=== PATIENT | male | born 1955 | race Caucasian/White ===

== ENCOUNTER 2016-05-13 02:59 | Inpatient (IN) | payer MEDICARE, MEDICAID ==
[~2016-05-13] VITALS: Ht 172.7 cm; Wt 108.6 kg
--- NOTE | ~2016-05-13 | CON ---
PATIENT'S NAME: SHARONDA RILEY [facility] AGE: 61 Y [address] ROOM: [id number] [place], [place] [address] LOCATION: GPCU ADMIT DATE: 05/13/2016 Consultation DISCHARGE DATE: FAMILY PHYSICIAN: Carmen Mckeon APRN ATTENDING PHYSICIAN: RENATO SIDDIQUI DATE OF CONSULTATION: 05/13/2016 REFERRING PHYSICIAN: BOBBY JOHNSON MD REASON FOR CONSULT: Infection at left arm AV graft site. HISTORY OF PRESENT ILLNESS: This is a 61-year-old male, admitted to [facility] after presenting to the [place] [facility] for evaluation of his left upper extremity surgical site. The patient reports that he was at home watching TV when he fell and 911 was called by his mother. This patient is well-known by Dr. Johnson and he most recently had a left arm brachial axillary graft placed on April 19, 2016. This patient was seen two weeks postoperatively at the [facility] and at that time, his surgical incision was found to be stable, clean, and without any signs of infection. The patient reports that over the last few days, the site has became more warm, red, swollen, and itchy. The patient reports scratching at the surgical incision. This patient is a poor historian. He answers questions during the interview, however answers are short and abrupt. He is currently in dialysis and receiving dialysis via his right upper chest tunneled dialysis catheter. The patient had a temperature high of 100.4 in the [place] ER. He also reports bloody drainage from the site. The patient currently denies any shortness of breath, chest pain, nausea, vomiting, diarrhea, constipation, abdominal pain, dizziness, or lightheadedness. He denies any chills. Symptoms are positive for increased swelling, redness, drainage, and pain at the left arm. The patient with a history of abscess to left arm, postop fistula back in September. PAST MEDICAL HISTORY: 1. End-stage renal disease. He is currently on hemodialysis every Monday, Monday, and Monday. 2. Diabetes mellitus type 2. Noncompliant. 3. Left upper extremity AV fistula postsurgical infection back in September 2015. 4. Hypertension. 5. Depression. 6. Coronary artery disease, bare-metal stent in May 2014 to the right RCA. 7. History of chronic diastolic heart failure. Most recent echo in March 2015, EF of 55% to 60%. Mild diastolic dysfunction, moderate pulmonary hypertension, pulmonary arterial systolic pressure estimated to be 51 PATIENT'S NAME: SHARONDA RILEY [facility] AGE: 61 Y [address] ROOM: [id number] [place], [place] [address] LOCATION: GPCU ADMIT DATE: 05/13/2016 Consultation DISCHARGE DATE: FAMILY PHYSICIAN: Carmen Mckeon APRN ATTENDING PHYSICIAN: RENATO SIDDIQUI. SURGICAL HISTORY: Left arm brachial axillary AV graft on April 19, 2016; left arm brachiocephalic revision in December 29, 2015; left arm brachiocephalic fistula creation on September 03, 2015; drainage left arm abscess in September 2015; status post left 3rd and fourth toe amputations from diabetic foot ulcer; cardiac catheterization with bare-metal stent to right RCA. FAMILY HISTORY: Mother with heart failure. Father with Alzheimer disease. CURRENT MEDICATIONS: See medication records. ALLERGIES: NO KNOWN ALLERGIES. REVIEW OF SYSTEMS: A 10-point review of systems was completed, positives addressed in the history of presenting illness. PHYSICAL EXAMINATION: VITAL SIGNS: Temperature 98.7, heart rate 55, respiratory rate 20, blood pressure 148/100, oxygen saturation 100%. GENERAL: The patient is a poor historian, poor hygiene, irritable at the time of interview, he appears in no distress. Left arm is tender on palpation. Pain overall controlled. SKIN: Multiple abrasions to the hands, overall pink, erythema to left arm. HEENT: Head: Normocephalic and atraumatic. Ears without drainage. Eyes: Sclerae white. Conjunctivae pink. Extraocular movements intact. PERRLA. Nose: Without drainage. Throat and Oral: Mucosa pink and moist. Poor dentition. NECK: Without adenopathy. No evidence of JVD. Trachea midline. RESPIRATORY: Clear to auscultation bilaterally, even and nonlabored. He is tachypneic at times. CARDIOVASCULAR: Regular rate and rhythm. No murmur or extra sounds. GASTROINTESTINAL: Bowel sounds active x4. Soft, obese, nontender. EXTREMITIES: Left upper extremity AV graft site is erythemic and edematous. Incision is open with purulent drainage. Warm to touch. It is positive for bruit and thrill. Radial and dorsalis pedis 2+ bilaterally. No cyanosis. Active range of motion throughout. NEUROLOGICAL: No focal deficits. Equal strength bilaterally. LABS: PATIENT'S NAME: SHARONDA RILEY [facility] AGE: 61 Y [address] ROOM: [id number] [place], [place] [address] LOCATION: GPCU ADMIT DATE: 05/13/2016 Consultation DISCHARGE DATE: FAMILY PHYSICIAN: Carmen Mckeon APRN ATTENDING PHYSICIAN: RENATO SIDDIQUI Hematology: White blood cell count 24.1, hemoglobin 9.5, hematocrit 28.6, platelets 180. CRP 17.9, procalcitonin 6.36. Blood cultures have been obtained and results are pending. IMPRESSION: 1. End-stage renal disease, on hemodialysis. 2. Sepsis as a result of infected AV graft. 3. Diabetes mellitus type 2. 4. Hypertension. 5. Coronary artery disease. 6. History of chronic diastolic heart failure. PLAN: The patient is with infected AV graft which will lead to severe sepsis, if not removed. It is difficult to clear infection from grafts once they have been exposed. The patient with increased white blood cell count, increased inflammatory markers, as well as visible signs of infection on examination. The patient was started on Zosyn and vanco per hospitalist team. We will plan for removal of AV graft with Dr. Johnson today and keep the patient n.p.o. Dr. Johnson has examined the patient and discussed risks and benefits with the patient. The patient verbalizes understanding of this plan. The patient will continue dialysis via his tunneled catheter. With removal of this graft, the patient will be without AV graft or fistula access. He will likely need to be refered to [facility] for hero graft placement,however he will need to be free of infection before a new graft is placed. Thank you for your consultation and for allowing us to participate in the care of this patient. KATE CRISTOBAL APRN FOR BOBBY JOHNSON MD TO/yonasl /[id number] d: 05/13/16 1342 t: 05/21/16 1042, CONSULTATION REPORT
--- NOTE | ~2016-05-13 | CON ---
PATIENT'S NAME: SHARONDA RILEY [facility] AGE: 61 Y [address] ROOM: [id number] [place], [place] [address] LOCATION: GPCU ADMIT DATE: 05/13/2016 Consultation DISCHARGE DATE: FAMILY PHYSICIAN: Camren Mckeon APRN ATTENDING PHYSICIAN: RENATO SIDDIQUI DATE OF CONSULTATION: 05/18/2016 REFERRING PHYSICIAN: BOBBY DE LA ROSA MD REASON FOR EVALUATION: MRSA bacteremia. CHIEF COMPLAINT: The patient states that he is doing okay. HISTORY OF PRESENT ILLNESS: Mr. Riley is not the best of historians. He is a 61-year-old man with end- stage renal disease, on dialysis. He apparently had a new graft placed into his left arm on April 19. Per notes, had a 2-week check, it was looking okay. I am uncertain if this was actually ever use for dialysis or not. In any event, he had some increased itchiness to the area and had some scratching of the area. The area then started to worsen. He kind of went unresponsive at home and was bleeding out of the left arm. He went to outside facility emergency room and pus was seen coming out of the left arm. He had a low- grade temperature. Blood cultures were obtained and he was started on empiric antibiotics and moved here. His AV graft was removed on that day (05/13). Blood cultures were obtained on arrival here at [facility]. His graft culture grew MRSA. There was report of necrotic tissue. He currently has a wound VAC in place. His blood cultures on arrival here were negative, but his blood cultures at outside facility were positive. He received some broad- spectrum antibiotics and then was transitioned to doxycycline a couple of days ago. With knowledge that his outside facility blood cultures return positive, he was restarted on vancomycin today. I am asked to evaluate. He is currently doing okay. He denies having any fevers or feeling sick. He states that his arm is doing better. He denies any back pain or other joint complaints. PAST MEDICAL HISTORY: Significant for end-stage renal disease, on dialysis via PermCath; diabetes mellitus; history of an MRSA postop fistula infection in 2016; high blood pressure; and coronary artery disease. SOCIAL HISTORY: He is retired. Lives with his mother. Negative for tobacco, alcohol, or drug use. PATIENT'S NAME: SHARONDA RILEY [facility] AGE: 61 Y [address] ROOM: [id number] [place], [place] [address] LOCATION: GPCU ADMIT DATE: 05/13/2016 Consultation DISCHARGE DATE: FAMILY PHYSICIAN: Carmen Mckeon APRN ATTENDING PHYSICIAN: RENATO SIDDIQUI FAMILY HISTORY: Positive for heart failure and Alzheimer's. REVIEW OF SYSTEMS: Pertinent positives include; 1. Integumentary. The patient with previous left arm issues, now with a wound VAC. 2. Genitourinary. The patient has end-stage renal disease, on dialysis. As the patient denies any and all other symptoms, the remainder of the complete review of systems is otherwise negative. PHYSICAL EXAMINATION: GENERAL: The patient lying in bed, in no acute distress. HEENT: The patient is anicteric. No conjunctival lesions noted. Ears, Nose, and Throat: Tongue has no thrush. CARDIOVASCULAR: Heart has regular rate and rhythm. RESPIRATORY: Breathing is easy and unlabored. Lungs are clear anterolaterally. GASTROINTESTINAL: Abdomen is soft and nontender. Normoactive bowel sounds are present. LYMPHATIC: No cervical lymphadenopathy. MUSCULOSKELETAL: No effusions of fingers, wrists, elbows, shoulders, or knees. INTEGUMENTARY: There is a wound VAC in place on the left arm. His IV site looks okay. His PermCath site looks okay. LABORATORY STUDIES: Blood cultures 2/2 at outside facility on the are positive for MRSA. His blood cultures here 4 hours later are negative. His AV graft tissue culture was MRSA. ASSESSMENT AND RECOMMENDATIONS: Methicillin-resistant Staphylococcus aureus bacteremia/graft infection. I think the chance of having endocarditis or something is extremely low as he cleared his blood cultures in only 4 hours. I suspect he did have a soft- tissue/graft infection with a secondary bacteremia. I am not certain exactly how long he was bacteremic, however. Symptoms of the arm were slowly increasing over time. The source of the infection has been removed. Given that there was some graft involvement and did have positive blood cultures, I would treat him with 4 weeks of parenteral antibiotics. This would give a planned stop date of June 10. This vancomycin is appropriate here and hopefully could be dosed with dialysis. I am uncertain if the graft had actually been used for dialysis yet, but as it was a graft site infection PATIENT'S NAME: SHARONDA RILEY [facility] AGE: 61 Y [address] ROOM: [id number] [place] [id number] [facility] ADMIT DATE: 05/13/2016 Consultation DISCHARGE DATE: FAMILY PHYSICIAN: Carmen Mckeon APRN ATTENDING PHYSICIAN: RENATO SIDDIQUI perhaps this means that the antibiotics could be given with his dialysis sessions? This will be at the discretion of Nephrology. I would, however, keep him on the vancomycin until June 10. Thank you for allowing me to participate in the care of Mr. Riley. MD STACY ALVARADO/modl /[id number] d: 05/19/16 0121 t: 05/19/16 1002, CONSULTATION REPORT
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
--- NOTE | ~2016-05-13 | HP ---
PATIENT'S NAME: SHARONDA RILEY [facility] AGE: 61 Y [address] ROOM: [id number] [place], [place] [address] LOCATION: GPCU ADMIT DATE: 05/13/2016 History & Physical DISCHARGE DATE: FAMILY PHYSICIAN: PHYSICIAN, UNKNOWN ATTENDING PHYSICIAN: RENATO SIDDIQUI DATE OF SERVICE: CHIEF COMPLAINT: Left arm pain. HISTORY OF PRESENT ILLNESS: This is a 61-year-old male who is a poor historian who says that he started feeling this itchiness in the left arm for a week ago; so, he started scratching and he for the last few days he noticed that the left arm starting to become erythematous, inflamed, and painful to touch. Today, he was at home watching TV, sitting on the chair, and he has no idea what happened and he fell down from the chair onto the ground and his mother who lives with him at home found him on the ground and 911 was called. EMS arrived at the scene and according to the report given to me by the provider from [facility] he told me that the patient was found to be covered with blood coming out from the left arm, where he has been scratching, and EMS put a dressing to cover it. The patient was brought to [facility] for evaluation. The patient is a poor historian and he cannot really tell me what happened and how did he fall and if he passed out or not. The patient cannot give me any details, but he did tell me that he never complained of chest pain or lightheadedness and there was no seizure activity. There was no postictal confusion. There was no urinary or bowel incontinence. There was no shaking of the limbs and there was no chest pain, palpitation, or dyspnea prior to the fall. The patient denies any head trauma. Over there at the [facility], the patient's dressing was removed, and according to the provider over there, they told me that there was active purulent drainage coming out from the left arm with serosanguineous drainage and the patient was later transferred here for higher level of care. Over there at the [facility], the patient's blood work and vital signs were remarkable for temperature at 100.4, low-grade fever, hemodynamically stable, blood pressure 120/60, on arrival and also at the time of transfer. MAP was always more than 65. Hemoglobin over there was 9.8, potassium was 5.4, leukocytosis, white blood cell 19,000, platelet 192,000, and saturating at 95% on 2 L nasal cannula. The patient was given 1 dose of IV vancomycin, 1 dose of IV Zosyn, and also got 1 L of normal saline bolus and was later transferred here for higher level of care. REVIEW OF SYSTEMS: As mentioned in the history of present illness. All other system review negative except those mentioned in history of present illness. PATIENT'S NAME: SHARONDA RILEY [facility] AGE: 61 Y [address] ROOM: [place] [address] LOCATION: GPCU ADMIT DATE: 05/13/2016 History & Physical DISCHARGE DATE: FAMILY PHYSICIAN: PHYSICIAN, UNKNOWN ATTENDING PHYSICIAN: RENATO SIDDIQUI PAST MEDICAL HISTORY: 1. End-stage renal disease, on hemodialysis every Monday, Monday, and Monday, he has a tunnel cath. 2. Diabetes, type 2, noncompliant, on home medication. 3. History of infected left upper extremity AV fistula, status post incision and drainage back in September 2015. 4. Hypertension. 5. Depression. 6. History of coronary artery disease, status post bare metal stent in May 2014 to the right RCA. 7. History of chronic diastolic heart failure with most recent transthoracic echo in March 2015, EF of 55% to 60%, with mild diastolic dysfunction, and moderate pulmonary hypertension of pulmonary arterial systolic pressure estimated to be at 51 mmHg. 8. On April 19, 2016, the patient underwent left arm brachioaxillary AV graft performed by Dr. Johnson. The patient had a most recent cardiac catheterization was on June 05, 2014. The patient had a RCA of 99% stenosis that is when he had a bare metal stent placed to the RCA. SOCIAL HISTORY: The patient denies any alcohol, illegal drug, or cigarette use in the past. The patient lives at home with his mother. 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 PAST SURGICAL HISTORY: 1. Status post right RCA bare metal stent placed in May 2014. 2. 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 3. Status post left AV fistula abscess, status post incision and drainage in 2015 in September. 4. On April 19, 2016, the patient underwent left arm brachioaxillary AV graft by Dr. Johnson. FAMILY HISTORY: Mother had heart failure. Father had Alzheimer disease. Father from advanced age from a cause that the patient could not remember. His mother is still alive and lives with him at home. ALLERGIES: NO KNOWN DRUG ALLERGIES. HOME MEDICATIONS: The medication list will be reconciled in the morning with the patient's pharmacy. PHYSICAL EXAMINATION: PATIENT'S NAME: SHARONDA RILEY [facility] AGE: 61 Y [address] ROOM: [id number] [place], [place] [address] [facility] ADMIT DATE: 05/13/2016 History & Physical DISCHARGE DATE: FAMILY PHYSICIAN: PHYSICIAN, UNKNOWN ATTENDING PHYSICIAN: RENATO SIDDIQUI VITAL SIGNS: At the time of my dictation, temperature 98.5, heart rate 89, respiration 12, blood pressure 142/67, MAP is 85, and saturation 97% on 2 L nasal cannula. GENERAL APPEARANCE: Alert and oriented x3, in no acute distress. HEENT: Pupils equally round and reactive to light. Extraocular muscles intact. Nasal turbinates are normal bilaterally. Moist oral mucosa. No oral thrush. NECK: No JVD. No cervical lymphadenopathy. No neck stiffness. CARDIOVASCULAR: Regular rate and rhythm. Normal S1, S2. No murmur, no rubs, no gallops. RESPIRATORY: Clear. ABDOMEN: Obese, soft, nontender, nondistended, normal bowel sounds. No hepatosplenomegaly. EXTREMITIES: No edema in lower extremities bilaterally. No edema in the right upper extremity. In the left arm, the patient has erythema, edema, and tenderness to palpation and has an open cut with serosanguineous drainage. It is painful to palpation. No obvious purulent drainage on my examination, but I could not really squeeze the arms either due to the pain. The patient is status post left 3rd and 4th toe amputation with some eschar in that area. The patient states it is chronic and has not changed. Right lower extremity: The patient has necrotic looking toenail on the 1st toe and also necrotic- looking toenail on the 4th toenail. The patient said this has been happening for the last 1-2 months. Dorsalis pedis pulses palpable, but weak bilaterally. Posterior tibialis pulse is also palpable bilaterally, but also weak. SKIN: As mentioned in the extremity section. NEUROLOGIC: Grossly nonfocal. The patient denies any decreased sensation in the bilateral lower extremities. MUSCULOSKELETAL: No joint pain. No muscle pain except in the left arm area. Refer to the extremity section for details. LABORATORY DATA: Lactic acid 1.7. White blood cell 24.1, hemoglobin 9.5, hematocrit 28.6, MCV 106.3, and platelet 180. Glucose 283, BUN 67, creatinine 9.0, sodium 132, potassium 5.4, chloride 93, CO2 21, calcium 8.2, total protein 7.5, albumin 3.1, AST 16, ALT 14, alkaline phosphatase 77, total bilirubin 0.5, direct bilirubin 0.2, phosphorus 6.5, magnesium 2.3, anion gap 23.4, GFR 6, hemoglobin A1c 7.6, INR 1.1, PTT 32. Procalcitonin 6.36. MICROBIOLOGY STUDIES: Blood culture 2 sets already obtained and pending. IMAGING STUDIES: No imaging was performed from the outside facility. PATIENT'S NAME: SHARONDA RILEY [facility] AGE: 61 Y [address] ROOM: [address] [address] [facility] ADMIT DATE: 05/13/2016 History & Physical DISCHARGE DATE: FAMILY PHYSICIAN: PHYSICIAN, UNKNOWN ATTENDING PHYSICIAN: RENATO SIDDIQUI ASSESSMENT AND PLAN: 1. Severe sepsis, secondary to left arm abscess and possible infected left arm arteriovenous graft: I will cover the patient with intravenous vancomycin and intravenous Zosyn. The patient is already on dialysis therefore intravenous vancomycin is okay to use. Will likely require US of the AV graft for possible infected AV graft. Currently, the patient is hemodynamically stable and the patient is on dialysis. The patient already got 1 L normal saline bolus from the outside facility even though the patient was never hypotensive. For now, the patient is hemodynamically stable. For now, I will watch him closely. Follow up blood culture 2 sets. I will consult Vascular Surgery in the morning to look into possible infected left arteriovenous graft. Further imaging test will be deferred to Vascular Surgery as determined necessary. If the patient becomes hemodynamically unstable or start dropping blood pressure, we will give intravenous fluids bolus as necessary. In the setting of dialysis patient and hemodynamically stable, aggressive intravenous fluids right now is not necessary. I will also obtain study of the drainage from the left arm. Check labs in the morning again. I will use the sepsis order set. Another differential could be cellulitis of the left arm. Osteomyelitis could be another differential, but in that case, MRI will be a better imaging. Could obtain MRI without contrast to prevent systemic nephrogenic fibrosis in the setting of end- stage renal disease. I will check a CRP and ESR. If osteomyelitis is suspected, then a biopsy ideally should be obtained prior to antibiotics. Currently, the wound does not look deep enough to affect the bone and it looks more like abscess or cellulitis. Further plan depends on clinical course. 2. Regarding his end-stage renal disease, on dialysis: Consult Nephrology for hemodialysis on every Monday, Monday, and Monday. 3. Regarding his diabetes, type 2: Put him on a sliding scale aspart a.c. and h.s. mild dose and titrate as necessary. Check A1c. Currently, the patient's medication list will be reconciled in the morning. It will be addressed once the medication list is ready. While he is n.p.o., he will be getting subcutaneous regular insulin, mild dose, q.6 h. While he is eating, he will get subcutaneous aspart insulin a.c. and h.s. mild dose. 4. Hypertension: Currently, home medication is being reconciled. In the setting of severe sepsis, I will hold the blood pressure medication for now. The patient is hemodynamically stable right now. 5. History of coronary artery disease with bare metal stent placed in the right coronary artery in May 2014: The patient denies any chest pain. I will get an EKG in the morning to confirm sinus rhythm. 6. History of chronic diastolic heart failure: Echo in March 2015 showed ejection fraction of 55% to 60% with mild diastolic dysfunction and moderate pulmonary hypertension of 51 mmHg of pulmonary arterial systolic pressure. Currently, the patient denies any shortness of breath, lungs PATIENT'S NAME: SHARONDA RILEY [facility] AGE: 61 Y [address] ROOM: [id number] [place], [place] [address] LOCATION: GPCU ADMIT DATE: 05/13/2016 History & Physical DISCHARGE DATE: FAMILY PHYSICIAN: PHYSICIAN, UNKNOWN ATTENDING PHYSICIAN: RENATO SIDDIQUI are clear. Requiring 2 L oxygen nasal cannula satting at 97%. I will get a chest x-ray to look for fluid overload in the setting of dialysis patient. Further plan depends on clinical course and depends on Vascular Surgery evaluation and Nephrology. The patient may require incision and drainage of the left arm. The patient has end-stage renal disease and his troponin will always be high due to the setting of end-stage renal disease. If the patient has chest pain, then troponin, CPK, CK-MB will be checked. For now, I will just get EKG in the morning to confirm sinus rhythm. The patient denies any chest pain. 7. Deep vein thrombosis prophylaxis: The patient will be on heparin subcutaneous 3 times a day. 8. History of left 3rd and 4th toe amputation, secondary to diabetic foot ulcer in the past: The patient complains of new-onset necrotic looking toenail on the 1st and 4th right toe. I will consult Wound Care to take a look at his wound. Dorsalis pedis pulses and posterior tibialis pulses are palpable, but weak in bilateral feet. 9. Further plan depends on clinical course. Time spent on the day of admission 45 minutes including chart review, interviewing and examining the patient, addressing all the questions and concerns that the patient had, and going over the plan of care with the patient and the nurse. MD LIU SOLO/brett /[id number] D: [id number] T: [id number] HISTORY & PHYSICAL
--- NOTE | ~2016-05-13 | DS ---
PATIENT'S NAME: SHARONDA RILEY [facility] AGE: 61 Y [address] ROOM: [address] [place], [place] [address] LOCATION: GPCU ADMIT DATE: 05/13/2016 Discharge Summary DISCHARGE DATE: FAMILY PHYSICIAN: Carmen Mckeon APRN ATTENDING PHYSICIAN: Demetri Cuellar PRINCIPAL DIAGNOSES: 1. Severe sepsis secondary to MRSA. 2. Arteriovenous graft MRSA infection, status post explant. 3. Type 2 diabetes. 4. Morbid obesity. 5. End-stage renal disease. 6. Asymptomatic bradycardia. PROCEDURES: Procedures done in the hospital; removal of left arm AV graft on 05/13/2016, by Vascular Surgery; tunnelled catheter placement by Interventional Radiology for dialysis. CONSULTANTS: Vascular Surgery, Nephrology, and Infectious Disease. HOSPITAL COURSE: A 61-year-old gentleman who is a poor historian, was admitted from [facility], where he was evaluated when he became drowsy and fell from the chair while watching TV. It appears that he had been having fever and itching on the left arm where AV graft was placed recently in March. He was transferred here for further medical care. On physical examination, the left AV graft looked infected. Vascular Surgery was consulted who explanted the graft on 05/13/2016. Blood cultures from outside facility as well as graft grew MRSA. Repeat cultures showed clearance of the bacteremia. He was started on vancomycin until 06/10/2016 per Infectious Disease's recommendation. He continued to get his scheduled dialysis in the hospital with the help of Nephrology. He also had asymptomatic bradycardia, and his metoprolol is being stopped on discharge. DISCHARGE MEDICATIONS: 1. Amlodipine 2.5 mg p.o. every day. 2. Aspirin 81 mg daily. 3. PhosLo 667 mg, dose 2668 mg, p.o. 3 times daily with meals. 4. Chlorhexidine gluconate use topically 3 times daily. 5. Cinacalcet 30 mg p.o. every day with food. 6. Docusate 100 mg p.o. twice daily. 7. Escitalopram 40 mg p.o. every day. 8. Insulin glargine 30 units subcu every morning, insulin glargine 15 units subcu every night at bedtime. 9. Pioglitazone 30 mg p.o. every day. 10. Simvastatin 40 mg p.o. every night at bedtime. PATIENT'S NAME: SHARONDA RILEY [facility] AGE: 61 Y [address] ROOM: [address] [place], [place] [address] LOCATION: GPCU ADMIT DATE: 05/13/2016 Discharge Summary DISCHARGE DATE: FAMILY PHYSICIAN: Carmen Mckeon APRN ATTENDING PHYSICIAN: Demetri Cuellar 11. Erythropoietin with dialysis, as per directed. 12. Tylenol 325 mg take 2 tablets as needed for pain. 13. Rutledge 5/325 one tablet p.o. every 4 hours p.r.n. for pain. 14. Dulcolax suppository 10 mg every day p.r.n. 15. Benadryl 25 mg p.o. at bedtime as needed. 16. Vancomycin IV, Pharmacy to dose, with dialysis until 06/10/2016. DISCHARGE DISPOSITION/INSTRUCTIONS: The patient will be sent home with home health care, with dialysis he will get IV vancomycin after the session. He will follow up with Dr. Johnson in 2 weeks and the primary care physician, Carmen Mckeon, in 3 days with a CBC and a BMP. DISCHARGE ACTIVITY: As tolerated. DIET: Renal diet. I spent 40 minutes in discharge planning and discharge coordination of this patient. MD JELLY BARAHONA/brett /[id number] d: 05/19/16 1327 t: 05/19/16 1821, DISCHARGE SUMMARY
--- NOTE | ~2016-05-13 | ECHO ---
Transthoracic Echocardiography Report (TTE) Demographics Patient Name SHARONDA RILEY Date of Study 05/19/2016 Patient Number [id number] Visit Number [id number] Date of 1955 Room Number G6335 Accession Number [id number] Gender Male Age 61 year(s) Referring Mike Hale Vocal Artist Hung Nicolas Physician Alisa Estrada MD Physician Interpreting Ashlee Franklin Mine Car Dispatcher Physician Chris PIERRE Supervising Ordering Physician Abhishek Magallanes MD/VIVI PIERRE Nurse Stress Diesel Stationary Engineer Conclusions Contractility Score Summary Normal Left Ventricular contractility was noted. Summary Technically difficult exam due to patient position and noncompliance. The left ventricle is normal in size . Mild concentric left ventricular hypertrophy. Diastolic assessment reveals Grade I diastolic dysfunction. Estimated EF: 65 %. The aortic root appears borderline dilated. The maximum diameter measures 3. cm. The ascending aorta appears mildly dilated. The maximum diameter measures 3.7 cm. No significant valvular pathology. Procedure Type of Study TTE procedure:2D Echocardiogram, M-Mode, Doppler , Color Doppler. Procedure Date Date: 05/19/2016 Start: 09:03 AM Study Location: Inpatient Portable Technical Quality: Fair due to body habitus. Indications:Endocarditis. Additional Indications:MRSA bacteremia Appropriate Use Criteria: 9 Patient Status: Routine HR: 40 bpm BP: 137/63 mmHg Allergies - No known allergies. M-Mode/2D Measurements LV Diastolic Dimension: 4.95 cm LV Systolic Dimension: 2.68 cm LV Septum Diastolic: 1.28 cm LV PW Diastolic: 1.17 cm AO Root Dimension: 3.2 cm Cardiac Output: 4.31 l/min LA Dimension: 3 cm LVOT: 2.1 cm LVOT VTI: 31.1 cm RV Base: 3.41 cm LV Stroke volume: 107.66 ml RV Length: 8.9 cm TAPSE: 3.15 cm TDI-S': 24.2 cm/s Doppler Measurements AV Peak Velocity: 1.84 m/s MV Peak E-Wave: 0.68 m/s AV Peak Gradient: 13.54 mmHg MV Peak A-Wave: 0.9 m/s AV Mean Gradient: 7 mmHg MV E/A Ratio: 0.75 LVOT Peak Velocity: 1.63 m/s MV P1/2t: 62 msec TR Gradient:9.24 mmHg PV Peak Velocity: 1.55 m/s Estimated RAP:3 mmHg PV Peak Gradient: 9.61 mmHg Estimated RVSP: 12 mmHg Estimated PASP: 12.24 mmHg E' Septal Velocity: 0.07 m/s A' Septal Velocity: 0.12 m/s E' Lateral Velocity: 0.09 m/s A' Lateral Velocity: 0.12 m/s Findings Left Ventricle The left ventricle is normal in size . Mild concentric left ventricular hypertrophy. Diastolic assessment reveals Grade I diastolic dysfunction. Estimated EF: 65 %. Right Ventricle Normal right ventricle structure and function. Left Atrium The left atrium is mildly dilated by LA volume index measurement. Right Atrium Normal right atrial size. IVC measures 1.89 cm with inspiratory collapse. Mitral Valve Mild mitral annular calcification. Borderline prolapse of the mitral valve. No significant mitral regurgitation. Aortic Valve Normal aortic valve structure and function. Tricuspid Valve Trivial tricuspid regurgitation by color Doppler. Pulmonic Valve Normal pulmonic valve structure and function. Pericardial Effusion No evidence of pericardial effusion. Epicardial fat pad noted. Miscellaneous The aortic root appears borderline dilated. The maximum diameter measures 3. cm. The ascending aorta appears mildly dilated. The maximum diameter measures 3.7 cm. Pleural Effusion No evidence of pleural effusion. Contractility Score LV regional wall motion:(0-Non visualized 1-Normal 2-Hypokinesis 3-Akinesis 4-Dyskinesis 5-Aneurysm) Signature dtt: Luisa Rosado dtd: 05/19/16 0903 Physician Self Edit
--- NOTE | ~2016-05-13 | OR ---
PATIENT'S NAME: SHARONDA RILEY [facility] AGE: 61 Y [address] [place] [facility] [place], [place] [address] LOCATION: GPCU ADMIT DATE: 05/13/2016 OR/Procedure Report DISCHARGE DATE: FAMILY PHYSICIAN: Carmen Mckeon APRN ATTENDING PHYSICIAN: RENATO SIDDIQUI SURGEON: Tono Johnson MD HOME HEALTH CARE PROVIDER: DATE OF PROCEDURE: 05/13/2016 PREOPERATIVE DIAGNOSIS: Infected left arm arteriovenous graft. POSTOPERATIVE DIAGNOSIS: Infected left arm arteriovenous graft. PROCEDURE PERFORMED: Removal of left arm arteriovenous graft. ANESTHESIA: General. ESTIMATED FLUID LOSS: 300 mL. OPERATIVE FINDINGS: Necrotic tissue in both the arterial and venous sites. Vein and artery closed primarily with 6-0 Prolene. DESCRIPTION OF PROCEDURE: The patient was brought to operating room, placed supine on the operating room table, and prepped and draped in a sterile manner. Preoperative time-out was performed. The patient was prepped and draped in a sterile manner. The patient received preoperative antibiotics in the form of Zosyn. We made an incision on the arterial side from his previous graft anastomosis. We dissected down. The wound was heavily scarred in. There was necrotic tissue surrounding the graft. It was difficult to ascertain what specific structures were. We were able to get down to the suture line. Even then it was difficult to dissect away normal-appearing artery from the surrounding scar tissue. We gave 5000 units of heparin and we had the clamping proximally and distally on what appeared to be the artery, however, after removing the graft, we could not achieve hemostasis. So we adequately put a tourniquet on further attempts and even with the tourniquet further attempts to patch the hole in the artery were unsuccessful. I had to simply do a primary anastomosis with a 6-0 Prolene. We removed the tourniquet and the clamps, and there was a radial pulse that was felt. We then turned our attention to opening up the venous end. Similar findings there with extremely scarred in tissue which was very hemorrhagic and required lots of Bovie cautery for hemostasis. We then dissected down the graft and once again, also find the suture line. We were not able to ascertain any normal- appearing vein. We also clamped proximally and distally on the tissue that appeared to be where the anastomosis was and then removed the graft and then we stitch the vein closed with the 6-0 Prolene as well. We copiously PATIENT'S NAME: SHARONDA RILEY [facility] AGE: 61 Y [address] ROOM: [id number] [place] [id number] [facility] ADMIT DATE: 05/13/2016 OR/Procedure Report DISCHARGE DATE: FAMILY PHYSICIAN: Carmen Mckeon APRN ATTENDING PHYSICIAN: RENATO SIDDIQUI irrigated both wounds with antibiotic solution, packed it with Dakin-soaked solution, and wrapped it with Kerlix, Luis wraps, and ABD pads. The patient tolerated the procedure well and transferred to the recovery room, then back to the floor. MD KIRAN العلي/brett /[id number] d: 05/13/16 2334 t: 05/17/16 1711, OPERATIVE SUMMARY
--- NOTE | ~2016-05-13 | CON ---
[facility]GE[facility] 61 Y [address] ROOM: [place] [address] LOCATION: GPCU ADMIT DATE: 05/13/2016 Consultation DISCHARGE DATE: FAMILY PHYSICIAN: Carmen Mckeon APRN ATTENDING PHYSICIAN: RENATO SIDDIQIU DATE OF CONSULTATION: 05/16/2016 REFERRING PHYSICIAN: BOBBY DE LA ROSA MD REASON FOR CARDIOLOGY CONSULTATION: Bradycardia. HISTORY OF PRESENT ILLNESS: This is a 61-year-old male, admitted with a left arm abscess and infected AV graft. He is currently status post removal of that graft due to infection. This consult requested due to the patient experiencing asymptomatic bradycardia in the setting of deep sleep as well as hyperkalemia. He had no hemodynamic changes noted other than the bradycardia. His blood pressure remained stable and the patient was unaware of any symptomatology during the event. He has a previous history of coronary artery disease with a stent placed to his RCA in [address] Salazar. He has refused followup with Cardiology since that time. At this point, he has no current complaints or any recent history of chest pain, shortness of breath, dyspnea on exertion, presyncope, syncope, nausea, vomiting, or diarrhea. He states he has no health complaints at this time other than his infected arm, which started with a scratch. PAST MEDICAL HISTORY: 1. Coronary artery disease status post a bare metal stent placement to the RCA in 2014. 2. Hypertension. 3. Diabetes mellitus type 2 with noncompliance. 4. Chronic diastolic congestive heart failure. 5. End-stage renal disease, on hemodialysis. 6. Depression. FAMILY HISTORY: The patient's mother had a history of heart failure. His father did have Alzheimer disease, but due to advanced age. SOCIAL HISTORY: The patient denies alcohol or illicit drug use. He also denies ever using tobacco. CURRENT MEDICATIONS: PATIENT'S NAME: OSVALDO [facility] AGE: 61 Y [address] ROOM: [place] [address] LOCATION: GPCU ADMIT DATE: 05/13/2016 Consultation DISCHARGE DATE: FAMILY PHYSICIAN: Carmen Mckeon APRN ATTENDING PHYSICIAN: RENATO SIDDIQUI 1. Actos 30 mg p.o. daily. 2. Aspirin 81 mg p.o. daily. 3. Colace 100 mg p.o. twice daily. 4. Doxycycline 100 mg p.o. twice daily. 5. Lexapro 40 mg p.o. daily. 6. PhosLo 2668 mg p.o. 3 times daily. 7. Sensipar 30 mg p.o. daily. 8. Zocor 40 mg p.o. daily in the evening. 9. Heparin 5000 units subcutaneous 3 times daily. 10. Levemir 15 units subcu daily in the evening. 11. NovoLog subcu on a mild sliding scale per a.c. and h.s. Accu-Cheks. 12. Peridex 3 times daily. MEDICATION ALLERGIES: No known medication allergies. REVIEW OF SYSTEMS: Pertinent positive review of systems listed in the HPI. All other review of systems evaluated and negative. PHYSICAL EXAMINATION: VITAL SIGNS: Temperature 97.5, pulse 53, respirations 16, blood pressure 115/54, and O2 saturation 95% on room air. The patient weighs 107.3 kg. SKIN: [place], warm, and dry. EYES: Sclerae clear. No xanthelasmas. ENT: Oral mucosa is pink and moist. No jugular venous distention. No carotid bruits. CHEST: Respirations are even and unlabored. Lung sounds are diminished to bilateral bases. HEART: Regular rate and rhythm. Normal S1 and S2. No murmurs, rubs, or gallops. ABDOMEN: Soft and nontender. It is obese and distended and possible ascites noted. MUSCULOSKELETAL: Equal muscle strength to upper and lower extremities bilaterally against resistance. EXTREMITIES: Peripheral pulses palpable. No clubbing or cyanosis noted. Does have mild lower extremity edema present. PSYCH: Alert and oriented. Mood and affect are appropriate. IMPRESSION AND PLAN: Per Dr. Bradley. 1. Asymptomatic bradycardia. 2. Coronary artery disease with history of stenting to the right coronary artery. 3. Hyperkalemia. PATIENT'S NAME: SHARONDA RILEY [facility] AGE: 61 Y [address] ROOM: [id number] [place], [place] [address] LOCATION: [facility] ADMIT DATE: 05/13/2016 Consultation DISCHARGE DATE: FAMILY PHYSICIAN: Carmen Mckeon APRN ATTENDING PHYSICIAN: RENATO SIDDIQUI 4. End-stage renal disease, on hemodialysis. 5. Anemia. The patient's bradycardia noted during his deep sleep as well as his hyperkalemia. He currently has appropriate heart rate response with exercise. He has no signs or symptoms of acute coronary syndrome and no acute ST changes noted on his EKG. There is no syncope and no need for further invasive cardiac evaluation. He has no complaints of angina. We do recommend continuing his aspirin, but do agree with stopping his beta-johanne in the setting of bradycardia. His hyperkalemia and end-stage renal disease are managed by Nephrology. Last echocardiogram showed an ejection fraction of 55% to 60% with moderate pulmonary hypertension. We will continue to monitor, evaluate, and treat as appropriate. Thank for this consult. Thank for allowing [facility] to interact in the care of this patient. CHARLIE ARGUETA APRN FOR MD ESTEPHANIA PICHARDO/brett /[id number] d: 05/18/16 2148 t: 05/30/16 1405, CONSULTATION REPORT
[~2016-05-13 02:59] MED LIST: ACTOS30 MG PO; ASPIRIN EC81 MG PO; ASPIRIN LO-DOSE81 MG PO; BACTRIM DS1 TAB PO; COLACE100 MG PO; FOSAMAX70 MG PO; LANTUS (IN100 UNIT/M SUB-Q; LANTUS SOL100 UNIT/1 SUB-Q; LEXAPRO20 MG PO; LEXAPRO5 MG PO; LIDODERM 5% P1 PATCH TOP; LOPRESSOR25 MG PO; LOPRESSOR6.25 MG/0. PO; MIACALCIN3.7 ML/BOT NOSE; MIRALAX PO527 GM/BOT PO; NORCO 5-325 MG1 TAB PO; NORCO 5-325 TA1 EACH PO; PHOSLO667 MG PO; SENSIPAR 30 MG30 MG PO; THERA-VITE W/ B1 TAB PO; TYLENOL325 MG PO; ZOCOR40 MG PO
[2016-05-13 04:25] LABS: HEMATOCRIT 28.6 % (37.0-53.0); HEMOGLOBIN 9.5 g/dL (11.0-16.0); MCH 35.3 pg (27.0-34.0); MCHC 33.2 gm/dL (32.0-36.5); MCV 106.3 fl (83.0-98.0); MPV 10.4 fl (9.4-12.4); RBC 2.69 M/uL (3.50-5.50); RDW-CV 14.8 % (11.9-14.6)
[2016-05-13 04:27] LABS: PLATELET COUNT 180 K/uL (150-450); WBC 24.1 K/uL (4.0-11.0)
[2016-05-13 04:35] LABS: INR - (THERAPEUTIC) 1.1 (0.9-1.1); PROTIME 11.9 SECONDS (9.6-11.1); PTT 32 SECONDS (25-32)
[2016-05-13 04:42] LABS: ALBUMIN 3.1 gm/dL (3.5-5.0); ANION GAP 23.4 (10.0-19.0); CALCIUM 8.2 mg/dL (8.5-10.5); MAGNESIUM 2.3 mg/dL (1.3-2.6); PHOSPHORUS 6.5 mg/dL (2.5-4.9); POTASSIUM 5.4 mMol/L (3.7-5.1); TOTAL PROTEIN 7.5 g/dL (6.0-8.4)
[2016-05-13 04:44] LABS: TOTAL BILIRUBIN 0.5 mg/dL (0.0-1.5)
--- NOTE | 2016-05-13 05:23 | NUR ---
Patient is a 61 year old male, with history of DMII, ESRD HD M-W-F, HTN, depression, CAD stent to RCA 05/2014, diastolic heart failure EF 55-60% 03/2015, many surgeries. Patient has been seen in the [place] ER three times this past week for falls, per report patient fell off couch last night and opened up his left fistula site. Mother found him on the floor and called EMS, EMS applied pressure drsg and transported to [place] [facility]. Patient received 2 grams IV Vanco and 3.375mg IV Zosyn at [place] and transfered to [facility]. VSS on admission, patient currently on 2L/NC. R)tunnelled dialysis line to R)subclavian, this is patient's only access at this time until seen by vascular this AM. Dr. Johnson and Dr. Mena consulted but need to be called. Multiple skin issues, WOC consulted. MD continues to fill out orders and dictate at this time.
[2016-05-13 05:35] LABS: ABSOLUTE NEUTROPHIL CT (ANC) 23.1 K/uL (1.4-9.0); BANDED NEUTROPHIL # 4.6 K/uL (0.0-0.1); BANDED NEUTROPHILS % 19 %; LYMPHOCYTE # 0.2 K/uL (0.8-4.0); LYMPHOCYTE % 1 %; MONOCYTE # 0.5 K/uL (0.0-1.0); SEGMENTED NEUTROPHIL # 18.6 K/uL (1.4-9.0); SEGMENTED NEUTROPHIL % 77 %
[2016-05-13] MEDS ORDERED: CIPRO500 MG PO (11:30)
[2016-05-13] MEDS ORDERED: ASPIRIN LO-DOSE81 MG PO (11:32)
--- NOTE | 2016-05-13 13:15 | NUR ---
Significant Event: Alert/oriented x 3. Vitals stable. Tunneled dialysis catheter to right subclavian. Dressing to left upper arm fistula was clean/dry/intact prior to leaving for dialysis. Bruit and thrill noted to fistula. Generalized dry skin with multiple small scabs scattered over entire body. Venous staining to bilateral lower extremities. Toes to left foot are dark in color. No IV access. Patient sent to dialysis at 0800, has not returned to unit. Dr. Mena and Dr. Johnson to consult on patient. Follow up: Wound cultures need to be obtained from fistula site, UA and urinalysis need to be obtained, MRI of left arm needed and CTs of head and abdomen needed.
[2016-05-14 03:48] LABS: HEMATOCRIT 25.8 % (37.0-53.0); HEMOGLOBIN 8.3 g/dL (11.0-16.0); MCH 35.2 pg (27.0-34.0); MCHC 32.2 gm/dL (32.0-36.5); MCV 109.3 fl (83.0-98.0); MPV 10.5 fl (9.4-12.4); RBC 2.36 M/uL (3.50-5.50); RDW-CV 15.3 % (11.9-14.6)
[2016-05-14 03:49] LABS: PLATELET COUNT 120 K/uL (150-450); WBC 20.6 K/uL (4.0-11.0)
[2016-05-14 04:08] LABS: CALCIUM 8.5 mg/dL (8.5-10.5)
[2016-05-14 04:09] LABS: CREATININE 6.1 mg/dL (0.6-1.3)
[2016-05-14 04:46] LABS: BANDED NEUTROPHIL # 2.9 K/uL (0.0-0.1); BANDED NEUTROPHILS % 14 %; LYMPHOCYTE # 0.8 K/uL (0.8-4.0); LYMPHOCYTE % 4 %; MONOCYTE # 0.8 K/uL (0.0-1.0); SEGMENTED NEUTROPHIL # 16.1 K/uL (1.4-9.0); SEGMENTED NEUTROPHIL % 78 %
--- NOTE | 2016-05-14 05:02 | NUR ---
Significant Event: pATIENT RETURNED FROM SURGERY AT APPROX 1905. AT FIRST PATIENT APPEARED TO BE ALERT AND ORIENTED X 3 DT HIS QUIETNESS HOWEVER PATIENT BEGAN TO MAKE CONFUSED STATEMENTS AND COULD NOT RECALL WHERE HE WAS HE WOKE UP. rEPEATED REMINDERS REQUIRED FOR PATIENT TO ACCOMPLISH SIMPLE TASKS. HEAVY 2 ASSIST WITH TRANSFER. BED AND CHAIR ALARM ON AT ALL TIMES. PATIENT HOLLERS OUT RATHER THAN USE CALL LIGHT. DRESSING TO OLD FISTULA SITE C/D/I. PATIENT REPORTED PAIN AT SURG SITE X1 HOWEVER HE REQUESTED HE ONLY NEEDED TYLENOL FOR 8/10 PAIN. EFFECT NOTED AND PATIENT SLEPT MOST OF SHIFT. iv TO R HAND WITHOUT ISSUE. PATIENT INSULIN CHANGED FROM Q6 REGULAR MILD SCALE TO AC/HS NOVOLOG MILD SCALE. Follow up: CONTINUE TO MONITOR PER POC.
--- NOTE | 2016-05-14 16:19 | NUR ---
Significant Event:Patient up in chair. Denies pain. Left upper arm drsg changed. Bloody drng. Denies n/t to site. Dialysis line intact to right chest. R) hand IV patent. O2 1L sats 96, on RA drop to 88%. LS clear, Abd firm and round with hypoactive tones. Dozed off and on. Vanco and Zosyn given. Mother updated on cares and plan. Accuchecks treated. Has some blacken toes and venous staining noted. Follow up: Van for fistual placement when stable.
[2016-05-14 18:59] LABS: ANION GAP 20.7 (10.0-19.0); CALCIUM 8.1 mg/dL (8.5-10.5); POTASSIUM 4.7 mMol/L (3.7-5.1)
[2016-05-14 19:00] LABS: CREATININE 7.2 mg/dL (0.6-1.3)
--- NOTE | 2016-05-15 05:01 | NUR ---
Significant Event: PATIENT IS A/O X 3 BUT DOES NOT UNDERSTAND HIS SITUATION AND IS VERY FORGETFULL. ALSO DOES NOT UNDERSTAND HIS LIMITATIONS, BED/CHAIR ALARMS ON AT ALL TIMES. 02 STILL AT 1L, COULD NOT WEEN, SATS WOULD DROP FROM 96% TO 88%. CRACKLES REMAIN IN LOWER RIGHT BASE. ABDOMEN VERY DISTENDED AND FIRM, ULTRASOUND JUST REVEALED SOME SMALL GALLSTONES OTHERWISE NEGATIVE. DIALYSIS MWF, HAS NOT VOIDED, STILL NEED UA. NORCO GIVEN X 2 LAST AT 0317. HR REMAINS SKYLAR IN THE 50'S, ALL OTHER VSS. DRESSING TO LEFT ARM C/D/I. Follow up:
[2016-05-15 05:13] LABS: BASOPHIL # 0.1 K/uL (0.0-0.2); BASOPHIL % 0.4 %; EOSINOPHIL # 0.8 K/uL (0.0-0.5); EOSINOPHIL % 5.9 %; HEMATOCRIT 23.2 % (37.0-53.0); IMMATURE GRANULOCYTE # 0.2 K/uL (0.0-0.3); IMMATURE GRANULOCYTE % 1.3 %; LYMPHOCYTE # 1.1 K/uL (0.8-4.0); LYMPHOCYTE % 8.4 %; MCH 35.2 pg (27.0-34.0); MCHC 33.2 gm/dL (32.0-36.5); MCV 105.9 fl (83.0-98.0); MONOCYTE # 1.1 K/uL (0.0-1.0); MONOCYTE % 8.3 %; MPV 10.3 fl (9.4-12.4); NEUTROPHIL # (ANC) 10.2 K/uL (1.4-9.0); NEUTROPHIL % 75.7 %; NRBC % 0 /100WBC (0-0.00); PLATELET COUNT 141 K/uL (150-450); RBC 2.19 M/uL (3.50-5.50); RDW-CV 14.8 % (11.9-14.6); WBC 13.5 K/uL (4.0-11.0)
[2016-05-15 05:15] LABS: HEMOGLOBIN 7.7 g/dL (11.0-16.0)
[2016-05-15 05:19] LABS: ANION GAP 22.8 (10.0-19.0); CALCIUM 7.9 mg/dL (8.5-10.5); POTASSIUM 4.8 mMol/L (3.7-5.1)
[2016-05-15 05:23] LABS: CREATININE 7.8 mg/dL (0.6-1.3)
--- NOTE | 2016-05-15 17:24 | NUR ---
Significant Event: Patient A/O x 3. Up with 1A and walker. VSS on 1L O2. Unable to wean to RA today. Abdomen continues to be distended and firm with hypoactive bowel sounds. Order to give suppository. Dressing changed to DELORES x 2 with vascular ACCESS SERVICES REPRESENTATIVE doing second dressing change. Denies any pain throughout the day. Follow up: Continue as per plan of care. MWF dialysis patient.
[2016-05-16 04:49] LABS: BASOPHIL % 0.4 %; EOSINOPHIL # 0.7 K/uL (0.0-0.5); EOSINOPHIL % 6.7 %; HEMATOCRIT 25.1 % (37.0-53.0); HEMOGLOBIN 8.1 g/dL (11.0-16.0); IMMATURE GRANULOCYTE # 0.1 K/uL (0.0-0.3); IMMATURE GRANULOCYTE % 1.3 %; LYMPHOCYTE % 9.5 %; MCH 34.8 pg (27.0-34.0); MCHC 32.3 gm/dL (32.0-36.5); MCV 107.7 fl (83.0-98.0); MONOCYTE # 0.9 K/uL (0.0-1.0); MONOCYTE % 8.4 %; MPV 10.8 fl (9.4-12.4); NEUTROPHIL # (ANC) 7.9 K/uL (1.4-9.0); NEUTROPHIL % 73.7 %; NRBC % 0 /100WBC (0-0.00); PLATELET COUNT 144 K/uL (150-450); RBC 2.33 M/uL (3.50-5.50); RDW-CV 14.8 % (11.9-14.6); WBC 10.7 K/uL (4.0-11.0)
[2016-05-16 05:19] LABS: CALCIUM 7.9 mg/dL (8.5-10.5)
[2016-05-16 05:25] LABS: ANION GAP 24.8 (10.0-19.0); CREATININE 9.3 mg/dL (0.6-1.3); POTASSIUM 5.8 mMol/L (3.7-5.1)
--- NOTE | 2016-05-16 05:38 | NUR ---
Significant Event: Patient continue to be alert and oriented but forgetful. did have episode while sleeping whe4re he removed his dressing and gown. Pt stated he does not recall doing so, dressing reapplied and currently intact. BM x 2. tolerating iv abx without issue. Patient repositions self frequently. reported back pain x 1 that was relieved with tylenol. Follow up: Continue to monitor per POC
--- NOTE | 2016-05-16 17:16 | NUR ---
Significant Event: VSS AND RA. AFEBRILE. 2 TABS NORCO X1 FOR BACKPAIN THIS AFTERNOON WITH RELIEF. TO HD FROM [id number] AND REMOVED 2.9L. RETURNED TO FLOOR AND WOC RN PLACED A WOUND VAC TO TWO OPEN DEEP WOUND TO LT)UPPER ANTERIOR ARM AT 1600. CARDIOLOGY CONSULTED FOR BRADYCARDIA; NO NEW ORDERS AT THIS TIME, BETA MARGO WAS PREVIOUSLY D/C'D BY HOSPITALIST OVERNIGHT; HR'S HIGH 40S-LOW 60S THIS SHIFT. IV ABX D/C'D AND STARTED ON PO. UP TO BSC AND HAD 1 MOD BM. REPOSITIONED Q2H WHILE ON THE FLOOR. PT/OT FOLLOWING. DISORIENTED TO TIME AND FORGETFUL, NEEDS FREQUENT REMINDERS AND IS ANXIOUS AT TIMES. Follow up: CONTINUE PLAN OF CARE.
--- NOTE | 2016-05-16 18:05 | NUR ---
Introduced self and role of care management to patient. He lives alone in [place]. He says recently when he wasn't feeling good he was staying with his mother at her home. He plans home when ready for discharge. He says he walked in the hallway with therapy. He goes to dialysis in [place] on at [phone]. He uses [employer] transportation to get to and from dialysis. He has HHC in the past and if possible would like them to do the wound vac changes. He had [facility] out of [place] before. Several calls with [facility] nurses and they don't know if Dr. Johnson will be OK with [facility] doing the dressing changes. [facility] says [facility] in [place] has WO nurses on staff and they could do the dressing changes. Patient is not sure he can work out the transportation with [employer] for the WOC dressing changes and dialysis. He says his C nurse was very good. Told him we will have to talk to Dr. Johnson and see what his preference is. Updated [facility] nurses. Will follow.
[2016-05-17 04:37] LABS: BASOPHIL # 0.1 K/uL (0.0-0.2); BASOPHIL % 0.5 %; EOSINOPHIL # 0.5 K/uL (0.0-0.5); EOSINOPHIL % 4.8 %; HEMATOCRIT 26.6 % (37.0-53.0); HEMOGLOBIN 8.6 g/dL (11.0-16.0); IMMATURE GRANULOCYTE # 0.3 K/uL (0.0-0.3); IMMATURE GRANULOCYTE % 2.3 %; LYMPHOCYTE # 1.2 K/uL (0.8-4.0); LYMPHOCYTE % 10.5 %; MCH 34.5 pg (27.0-34.0); MCHC 32.3 gm/dL (32.0-36.5); MCV 106.8 fl (83.0-98.0); MONOCYTE # 0.9 K/uL (0.0-1.0); MONOCYTE % 8.2 %; MPV 10.4 fl (9.4-12.4); NEUTROPHIL # (ANC) 8.2 K/uL (1.4-9.0); NEUTROPHIL % 73.7 %; NRBC % 0 /100WBC (0-0.00); RBC 2.49 M/uL (3.50-5.50); RDW-CV 14.6 % (11.9-14.6); WBC 11.1 K/uL (4.0-11.0)
--- NOTE | 2016-05-17 04:47 | NUR ---
Significant Event: DISORIENTED TO PLACE AT TIMES. FORGETFUL. BED AND CHAIR ALARM ENAGED AT ALL TIMES. ANXIOUS AT TIMES. AFEBRILE. VSS ON RA. FENTANYL GIVEN AT 185 FOR A SEVERE HEADACHE. NO C/O OF PAIN SINCE. PATIENT IS RESTING COMFORTABLY IN THE CHAIR. ALSO GAVE SOME PO BENDRYL TO HELP PATIENT SLEEP. PATIENT HAS BEEN RESTING OFF AND ON THROUGHOUT THE SHIFT. IV TO R) HAND SL. TUNNELED DIALYSIS CATHETER TO R) SUBCLAVIAN SL. VOIDED X2. STILL NEED A UA. HAD A COUPLE LOOSE BM THIS SHIFT. WOUND VAC TO L) UPPER ARM. KERLEX AND ALLYSON WRAP C/D/I. Follow up: CONTINUE WITH PLAN OF CARE.
[2016-05-17 04:48] LABS: PLATELET COUNT 179 K/uL (150-450)
[2016-05-17 05:04] LABS: CALCIUM 7.9 mg/dL (8.5-10.5)
[2016-05-17 05:12] LABS: ANION GAP 19.7 (10.0-19.0); POTASSIUM 4.7 mMol/L (3.7-5.1)
--- NOTE | 2016-05-17 17:30 | NUR ---
Spoke with Dr. Johnson earlier today and he says from his standpoint patient can go anytime and he is fine with [facility] managing the wound VAC. Spoke with patient regarding discharge. He says told him he can maybe go tomorrow. Asked him about transportation and if need to set up [employer]. He says his sister will transport him home when he is discharged. Talked about C and he wants [facility]. He says he will be staying with his mother when he is discharged so that is where C will need to see him. Confirmed his mother's address with him. Called [facility] and they said will need to call in the a.m. to set up new referral. Will follow.
--- NOTE | 2016-05-17 17:52 | NUR ---
Significant Event: Alert and awake. Answers orientation questions but very forgetful and impulsive. AC/HS accuchecks. Wound vac remains intact. c/o back pain, norco given. Follow up: HD tomorrow with plans for dismissal with home health.
[2016-05-18 05:39] LABS: BASOPHIL # 0.1 K/uL (0.0-0.2); BASOPHIL % 0.6 %; EOSINOPHIL # 0.6 K/uL (0.0-0.5); EOSINOPHIL % 4.6 %; HEMATOCRIT 26.4 % (37.0-53.0); HEMOGLOBIN 8.7 g/dL (11.0-16.0); IMMATURE GRANULOCYTE # 0.3 K/uL (0.0-0.3); IMMATURE GRANULOCYTE % 2.5 %; LYMPHOCYTE # 1.5 K/uL (0.8-4.0); LYMPHOCYTE % 12.6 %; MCH 34.9 pg (27.0-34.0); MONOCYTE # 0.9 K/uL (0.0-1.0); MONOCYTE % 7.5 %; MPV 10.4 fl (9.4-12.4); NEUTROPHIL # (ANC) 8.7 K/uL (1.4-9.0); NEUTROPHIL % 72.2 %; NRBC % 0 /100WBC (0-0.00); PLATELET COUNT 199 K/uL (150-450); RBC 2.49 M/uL (3.50-5.50); RDW-CV 14.7 % (11.9-14.6); WBC 12.1 K/uL (4.0-11.0)
[2016-05-18 05:56] LABS: ANION GAP 21.8 (10.0-19.0); CALCIUM 7.9 mg/dL (8.5-10.5); PHOSPHORUS 7.4 mg/dL (2.5-4.9); POTASSIUM 4.8 mMol/L (3.7-5.1)
[2016-05-18 06:01] LABS: CREATININE 9.5 mg/dL (0.6-1.3)
--- NOTE | 2016-05-18 11:16 | NUR ---
A - PT SCREENED D/T LOS. WOUND VAC LUE - DEEP WOUND. DIALYSIS. 1+ EDEMA HT: 68" WT: 239# BMI: 35.9 LABS: ACCUCHECK WNL->200, BUN/CR 74/9.5, ALB 3.0, PHOS 7.4, MG 2.7, CRP 17.9, WBC 12.1, HGB/HCT 8.1/26.4 MEDS: FLORASTOR, LEVEMIR, ACTOS, PHOSLO, SSI, BOWEL/NAUSEA, DOXYCYCLINE DIET: DIABETIC. INTAKE: REF-100%, AVG ~33% NEEDS: 1337-7727 KCAL (30-35 KCAL/KG), 109-131 G PRO (1-1.2 G/KG), 2180 ML FLUID (20 ML/KG) D - INADEQUATE NUTRIENT INTAKE R/T DECREASED APPETITE AEB INTAKE RECORD. I - GOAL FOR INTAKE > 50% BY NEXT ASSESSMENT. WILL ADD GLUCERNA BID TO INC NUTRIENT INTAKE. M/E - WILL MONITOR INTAKE F/U IN 2-5 DAYS.
--- NOTE | 2016-05-18 15:44 | NUR ---
Significant Event: pt had dialysis this am, 2.2liters off. Pt mom calls often today check if pt going home. Reginos 2 times today. WOC to bring pt wound vac for home before pt goes home today. Pt ride to come and get him. Follow up:
--- NOTE | 2016-05-18 16:30 | NUR ---
Referral made to [facility] services and information faxed. Worked with [facility] nurses and Jazmine GARCIAS on discharge plans. Patient to go home later today with [facility] services. Initially told wound vac was approved and talked to patient about a ride home. He gives me a number for his sister Trang, but when I call it it is his mother. Asked mother for Trang's number and she says her friend Candice has volunteered to go to [place] to pick him up. She says her friend will leave around 1530 to pick patient up. Several call with [facility] staff and told by [facility] wound vac will be approved and to go ahead with transporation arrangements. Many calls from his Mom and she doesn't always remember the previous call she made. She tells me Candice will be leaving later as has to get her grandson. Notified wound VAC approved. Talked to Jazmine GARCIAS and Dr. Weiss and they will get discharge paperwork done. Called his mom and told her Candice can come get him and she says she is already on his way. [facility] orders and paperwork faxed to [facility]. Will follow.
--- NOTE | 2016-05-18 17:00 | NUR ---
Received call from Jazmine GARCIAS and his PCP Carmen Mckeon APRN had several questions regarding the discahrge plan. Gave Jazmine the answers and she will call Luiza back. Notified Dr. Weiss feels patient will need 14 days of IV ATBS and discharge has been cancelled. They do feel with the ATBs will need to look at SB or SNF. Called his mother to get Candice's phone number and she says she will contact Candice regarding change in plans. Will contact SB and SNFs in the a.m. Will follow.
[2016-05-19 04:51] LABS: BASOPHIL # 0.1 K/uL (0.0-0.2); BASOPHIL % 0.7 %; EOSINOPHIL # 0.4 K/uL (0.0-0.5); EOSINOPHIL % 2.7 %; HEMATOCRIT 28.2 % (37.0-53.0); HEMOGLOBIN 9.1 g/dL (11.0-16.0); IMMATURE GRANULOCYTE # 0.6 K/uL (0.0-0.3); IMMATURE GRANULOCYTE % 4.2 %; LYMPHOCYTE # 1.5 K/uL (0.8-4.0); LYMPHOCYTE % 11.1 %; MCH 34.7 pg (27.0-34.0); MCHC 32.3 gm/dL (32.0-36.5); MCV 107.6 fl (83.0-98.0); MONOCYTE % 7.5 %; MPV 10.1 fl (9.4-12.4); NEUTROPHIL # (ANC) 10.2 K/uL (1.4-9.0); NEUTROPHIL % 73.8 %; NRBC % 0 /100WBC (0-0.00); RBC 2.62 M/uL (3.50-5.50); RDW-CV 14.9 % (11.9-14.6); WBC 13.9 K/uL (4.0-11.0)
[2016-05-19 04:56] LABS: PLATELET COUNT 241 K/uL (150-450)
[2016-05-19 05:05] LABS: ALBUMIN 3.1 gm/dL (3.5-5.0); ANION GAP 18.8 (10.0-19.0); CALCIUM 7.8 mg/dL (8.5-10.5); PHOSPHORUS 6.3 mg/dL (2.5-4.9); POTASSIUM 4.8 mMol/L (3.7-5.1)
[2016-05-19 05:07] LABS: CREATININE 7.3 mg/dL (0.6-1.3)
--- NOTE | 2016-05-19 05:44 | NUR ---
Significant Event:VSS. BRADYCARDIA PER TELE, ASYMPTOMATIC. PT EAGER TO RETURN HOME. RE-ORIENTED MANY TIMES. MULTIPLE TIMES UP TO CHAIR. YELLS OUT FOR NEEDS, DOES NOT USE CALL LIGHT. REFUSED SHOWER/BATH. Follow up: IV ABX
[2016-05-19] MEDS ORDERED: VANCO 750750 MG/150 (14:31)
[2016-05-19] MEDS ORDERED: DULCOLAX10 MG R (14:33)
[2016-05-19] MEDS ORDERED: BENADRYL25 MG PO (14:35)
[2016-05-19] MEDS ORDERED: TYLENOL325 MG PO (14:37)
[2016-05-19] MEDS ORDERED: ACTOS30 MG PO (14:42)
[2016-05-19] MEDS ORDERED: FLORASTOR250 MG PO (14:43)
[2016-05-19] MEDS ORDERED: EPOGEN (2020000 UNIT SUB-Q (14:49)
[2016-05-19] MEDS ORDERED: HEPARIN 1,1000 UNIT/ (15:00)
[2016-05-19] MEDS ORDERED: PERIDEX15 ML PO (15:05)
--- NOTE | 2016-05-19 15:05 | NUR ---
This am I did start and faxed a referral to the swingbed in [place] just in case after reading Aleida's note. I then went to the floor and ID recommended Vanco with dialysis because it is a related issue till 06/10. I then spoke with DR Mena and he states that we need to notify [facility] and make sure they are able to do this and then he will call the provider there to order it and is planning 1gm Vanco after each dialysis til 06/10. I then spoke with Khadra with [facility] and updated her but after talking with Rosana RN she states pt wants to go home and most likely will not agree to the swingbed. I did ask about the order for psych to see reguarding compentency? I then also called Daylin with [facility] [phone] and spoke with Daylin RN and she states she is aware of the pt and it should not be problem to give the Vanco they just need an order for it and it will come from there provider after Dr Mena calls and updates them. I then called Dr Mena and he stated he will call doctor Eze or the other one with the update. I then went to see pt and did mentioned skilled facility and or swingbed and he states no he is going home. He does have his patient care coordinator Candice. I asked about a walker and he does not use one and will not need one but I explained I would get a script for one just in case. I then updated Rosana SIMENTAL and also updated DR Weiss and he stated he has not seen him yet but will keep me updated. I then got a call from Rosana Simental that doctor has dismissed him home. I asked about the psych consult and Rosana did ask and states it is not needed. I then told Rosana to call Dr Mena so he can get the Vanco set up and also WOC to put the vac on. I then called [facility] and faxed the dc orders( I also spoke with Janet earlier today and they plan on admitting tomorrow and also do the wound vac) I also called Daylin again at [facility] and explained he is dismissed and plan tomorrow for dialysis and the vanco iv and she is aware but has not heard yet from her provider for the orders. I did fax Daylin orders as well. I then got a phone call from Gi the charge nurse asking about the psych consult and I explained the need to notify Dr Weiss and Rosana because they told me they were cancelling it? They asked about the vanco and I also stated that will be given in dialysis so will also need to talk with Rosana because she spoke with Dr Mena if they need some type of order. I also then called Celina with [facility] [employer] [facility] [employer] [phone] and she states Candice is is caregiver for bathing, dressing etc and has 21 hrs a week and he does ge meals on wheels. I did tell Celina she will need to look into it but he would benefit from an increase in his caregivers hours. Will continue to follow and assist as needed.
[2016-05-19] MEDS ORDERED: NORVASC2.5 MG PO (15:08)
--- NOTE | 2016-05-19 16:07 | NUR ---
I did touch base with nursing once again and I explained the plan was home yesterday and the only thing changed is added the vanco iv with dialysis per Dr Mena. I did call Daylin and she states we should be good if they do not have the order they will take care of it in the am and they have his ride lined up for tomorrow. I also spoke with pt with Janet with [facility] on the phone and his ride comes at 0930 in the am so they will plan on being at his house at 0830 to admit and change the wound vac dressing. I then called his mother and updated her the plan is home health will be there at 0830 before dialysis and he will get the antibiotic after his treatment. She did understand but worried about Candice getting him picked up because she would not answer the phone call. I explained per Rosana that was the plan. I then asked if he had a legal guardian and she stated no he makes his own decisions. Rosana SINCLAIR did update DR Weiss. WIll assist as needed.
--- NOTE | 2016-05-19 16:21 | NUR ---
Significant Event: pt more alert today, not had any pain pills, says no pain until late afternoon, 2 norco wanted and given for back. WOC changed wound vac to smaller portable. Dr Mena will call and get vanco dose per [facility] dialysis. Echo done this am. Pt bradycardic, cardio told and already know. Pt does not eat much again today, does take few things nurse makes and offers to take meds. PT amb pt today ok. Pt alert/oriented most of time, just sleepy and alittle forgetful at times. Follow up:
--- NOTE | 2016-05-19 17:54 | NUR ---
d-so dougherty'd pt dc i-nurse did teaching on all meds, home health his home 0830 am, dialysis then wound vac change tomorrow. WOund vac on and to plug in all times. IV dcd intact. Accucheck 170. Appts made for f/u. Rx given. Info printed for pt to read on new meds. Pt states all understanding of all and has no more questions. Pt instructed he needs to be compliant and take meds, and keep trying. Pt ride and home care associate here to get pt and also given instructions on all. Dialysis cath instructed on cares as pt has had before. Rx given for walker. r-pt states understanding p-transport took pt to car per wc
== END 2016-05-19 17:30 | disposition home health service (06) | DRG 252 ==
LOC: GPCU 02:59
PROVIDERS: Family Medicine; Nurse Practitioner; Nurse Practitioner Family; Surgery Vascular Surgery; ADMIT Internal Medicine
PROC: 03Q80ZZ Repair Left Brachial Artery, Open Approach (ICD-10-PCS; principal; 2016-05-13)
PROC: 05Q Upper Veins, Repair (ICD-10-PCS; 2016-05-13)
PROC: 5A1D60Z (ICD-10-PCS; 2016-05-13)
DX: T82.7XXA Infection and inflammatory reaction due to other cardiac and vascular devices, implants and grafts, initial encounter (principal); A41.02 Sepsis due to Methicillin resistant Staphylococcus aureus; I13.2 Hypertensive heart and chronic kidney disease with heart failure and with stage 5 chronic kidney disease, or end stage renal disease; N18.6 End stage renal disease; I50.32 Chronic diastolic (congestive) heart failure; E11.22 Type 2 diabetes mellitus with diabetic chronic kidney disease; Z99.2 Dependence on renal dialysis; Z68.35 Body mass index [BMI] 35.0-35.9, adult; E66.01 Morbid (severe) obesity due to excess calories; I25.10 Atherosclerotic heart disease of native coronary artery without angina pectoris; Z95.5 Presence of coronary angioplasty implant and graft; Z89.422 Acquired absence of other left toe(s); Z79.4 Long term (current) use of insulin; Z79.82 Long term (current) use of aspirin; D63.1 Anemia in chronic kidney disease; Z91.19 Patient's noncompliance with other medical treatment and regimen; R00.1 Bradycardia, unspecified
CPT/HCPCS: J0461; J0690; J1644; J1940; J2001; J2212; J2543; J2720; J2997; J3010; J3370; J7030; J7040; J7050; P9047; Q4081